=== PATIENT | male | born 1960 | race Caucasian/White ===

== ENCOUNTER 2022-12-28 14:26 | Outpatient (REF) | payer MEDICARE, SELFPAY | END 2022-12-28 14:27 | disposition home or self-care (01) | LOC: LBN 14:26 | PROVIDERS: Visit Provider Physician Assistant | DX: L02.214 Cutaneous abscess of groin (principal) | CPT/HCPCS: 87077; 87070; 87186; 87205 ==

== ENCOUNTER 2024-05-29 15:23 | Outpatient (CLI) | payer MEDICARE, SELFPAY ==
--- NOTE | 2024-05-29 15:45 | DI.RAD_ITS ---
Exam(s) XR THUMB LT EXAM: XR THUMB LT CLINICAL HISTORY: M79.645 LT thumb MCP joint pain r/o fracture. TECHNIQUE: 2D digital imaging was performed. COMPARISON: No exams were available for comparison FINDINGS: 3 views No evidence of acute fracture or dislocation. On 1 image there appears to be a possible well-defined erosion on the medial aspect of the proximal phalanx of the metacarpophalangeal joint of the thumb. There is some overlying soft tissue swelling. Mild degenerative changes noted in this joint. There also degenerative changes evident in the lateral aspect of the interphalangeal joint of the thumb. There is sparing of the carpometacarpal joint of the thumb. Otherwise there is some degenerative narrowing of the 2nd and 3rd metacarpophalangeal joints (index a nd middle fingers). 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 There also appears to be a defect having the appearance of the possible erosion on the medial aspect of the base of the proximal phalanx of the thumb. If clinically indicated follow-up MRI of the thumb can be performed using ulnar collateral ligament p rotocol sequences. DATA REPOSITORY: RADIATION DOSE DELIVERED:
== END 2024-05-29 15:43 ==
LOC: DI 15:27
PROVIDERS: PCP Physician Assistant; Visit Provider Physician Assistant
DX: M79.645 Pain in left finger(s)
CPT/HCPCS: 73140